=== PATIENT | male | born 1970 | race Caucasian/White ===

== ENCOUNTER 2018-11-25 18:03 | Emergency (ER) | payer BC ==
[~2018-11-25] VITALS: Ht 162.6 cm; Wt 68.0 kg
[~2018-11-25 18:03] MED LIST: ZES10 PO
[2018-11-25 18:24] VITALS: Ht 162.6 cm; Wt 68.0 kg
[2018-11-25 21:13] VITALS: BP 149/89
== END 2018-11-25 21:13 | disposition home or self-care (01) ==
LOC: ED 18:03
DX: J06.9 Acute upper respiratory infection, unspecified (principal); Z88.0 Allergy status to penicillin; I10 Essential (primary) hypertension